=== PATIENT | male | born 1995 | race American Indian/Alaskan Native ===

== ENCOUNTER 2020-11-19 13:20 | Emergency (ER) | payer SELFPAY ==
[2020-11-19 13:42] VITALS: BP 128/78
--- NOTE | 2020-11-19 14:19 | Emergency Department Report ---
ED Laceration HPI - HPI Chief Complaint: Wound/Laceration Stated Complaint: DEEP CUT TO THUMB X DAY/WORK RELATED Time Seen by Provider: 11/19/20 13:41 Occurred When: Today Location: Upper Extremity Severity: mild Tetanus Status: Up to Date Laceration Symptoms: Yes Pain, No Foreign Body Sensation, No Numbness, No Weakness Other History: 35-year-old male was working in a scrap yard with sustained laceration to his left palm on the dorsal aspect which he tried to self treat with skin glue but woke this morning with swelling and pain to the area and presents to the ER to be evaluated for possible infection. Reports no numbness or tingling, no fever, chills, sweats, no chest pain palpitations no nausea, no vomiting. ED Review of Systems ROS: Stated complaint: DEEP CUT TO THUMB X DAY/WORK RELATED Other details as noted in HPI Comment: All other systems reviewed and negative ED Past Medical Hx - Past Medical History Previous Medical History?: No - Surgical History Past Surgical History?: No - Social History Smoking Status: Current Every Day Smoker Substance Use Type: None - Medications Home Medications: Home Medications Medication Instructions Recorded Confirmed Last Taken Type cephALEXin [Keflex] 500 mg PO Q8HR #21 cap 11/19/20 Unknown Rx Laceration Physical Exam - Exam General: Vital signs noted. No distress. Alert and acting appropriately. Wound Length (cm): 2 Laceration Location: Upper Extremity Full Body Front + Back: 1 - Laceration site with partial skin adhesive covering the wound. Some local swelling minimal warmth. Pulses 2+ no pallor noted. Laceration Exam: Yes Normal Distal CMS, No Foreign Body, No Exposed Tendon, Vessel, or Nerve, No Tendon Injury ED Course Vital Signs 11/19/20 13:38 Temperature 98.3 F Pulse Rate 60 Respiratory 18 Rate Blood Pressure 128/78 O2 Sat by Pulse 96 Oximetry ED Medical Decision Making - Medical Decision Making 25-year-old male status post laceration to thumb with delayed in treatment. Currently the area has some swelling and some erythema may be in the beginning stages of any infectious processes but too early to tell we will treat more aggressive antibacterial soap and water along with Elocon ointment to start a short course of antibiotics. I advised him to get the wound reevaluated within 48 hours Critical care attestation.: If time is entered above; I have spent that time in minutes in the direct care of this critically ill patient, excluding procedure time. ED Disposition Clinical Impression: Laceration of thumb with delay in treatment Disposition: DC-01 TO HOME OR SELFCARE Is pt being admited?: No Does the pt Need Aspirin: No Condition: Stable Instructions: Laceration Care, Adult, Wound Care, Adult Additional Instructions: Keep wound clean antibacterial soap and water and [id number] antimicrobial ointment as well. As we discussed. Pediatric emergency department should you begin to see any significant redness, fever, swelling Prescriptions: cephALEXin [Keflex] 500 mg PO Q8HR #21 cap Referrals: MILLER DICKENS MD [Staff Physician] - 3-5 Days
== END 2020-11-19 14:30 | disposition home or self-care (01) ==
LOC: ED 13:20
DX: S61.012A Laceration without foreign body of left thumb without damage to nail, initial encounter (principal); F17.200 Nicotine dependence, unspecified, uncomplicated; Z79.899 Other long term (current) drug therapy; Z88.8 Allergy status to other drugs, medicaments and biological substances; X58.XXXA Exposure to other specified factors, initial encounter; Y93.89 Activity, other specified; Y92.89 Other specified places as the place of occurrence of the external cause; Y99.8 Other external cause status
CPT/HCPCS: 99282

== ENCOUNTER 2022-03-28 11:26 | Emergency (ER) | payer SELFPAY ==
[2022-03-28 11:37] VITALS: BP 131/87
[2022-03-28] MEDS ORDERED: HYDROcodone/ACETAMINOPHEN 7.5-325MG TAB PO ONE (12:10)
[2022-03-28] MEDS ORDERED: ONDANSETRON 4 MG ODT TAB PO ONE (12:10)
[2022-03-28] MEDS ORDERED: IBUPROFEN 600 MG TAB PO ONE (12:10)
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
== END 2022-03-28 13:30 | disposition home or self-care (01) ==
LOC: ED 11:26
DX: S62.102A Fracture of unspecified carpal bone, left wrist, initial encounter for closed fracture (principal); S50.12XA Contusion of left forearm, initial encounter; S53.402A Unspecified sprain of left elbow, initial encounter; Z98.890 Other specified postprocedural states; F17.290 Nicotine dependence, other tobacco product, uncomplicated; Z91.018 Allergy to other foods; V89.2XXA Person injured in unspecified motor-vehicle accident, traffic, initial encounter; Y93.89 Activity, other specified; Y92.89 Other specified places as the place of occurrence of the external cause; Y99.8 Other external cause status
CPT/HCPCS: 99283; J3490; Q0162